=== PATIENT | female | born 1995 | race Caucasian/White ===

== ENCOUNTER 2017-09-13 18:14 | Emergency (ER) | payer OTHER ==
[2017-09-13] MEDS: METOCLOPRAMIDE INJ 10MG/2ML VIAL (J2765) IV (19:26)
[2017-09-13] MEDS: NS 500 ML IV (19:27)
[2017-09-13] MEDS: KETOROLAC 30 MG/ML VIAL (J1885) IV (19:27)
[2017-09-13 19:54] LABS: BASO % 0.3 % (0.0-1.0); HEMATOCRIT 36.6 % (36.0-47.0); HEMOGLOBIN 12.6 g/dl (12.0-15.5); IMMATURE GRANULOCYTE % 0.3 % (0-3.0); LYMPH % 14.5 % (24.0-44.0); MEAN CORPUSCULAR HEMOGLOBIN 29.4 pg (27.0-33.0); MEAN CORPUSCULAR HGB CONC 34.4 g/dl (32.0-36.5); MEAN CORPUSCULAR VOLUME 85.5 fl (80.0-96.0); MONO # 0.5 10^3/uL (0.0-0.8); NEUTROPHILS # 5.1 10^3/uL (1.8-7.7); NEUTROPHILS % 77.9 % (36.0-66.0); PLATELET COUNT, AUTOMATED 202 10^3/uL (150-450); RED BLOOD COUNT 4.28 10^6/uL (4.00-5.40); RED CELL DISTRIBUTION WIDTH 12.3 % (11.5-14.5); WHITE BLOOD COUNT 6.6 10^3/uL (4.0-10.0)
[2017-09-13 19:58] LABS: CONTROL LINE HCG INT CTR LINE PRESENT; HCG, SERUM QUALITATIVE NEGATIVE (NEGATIVE)
[2017-09-13 20:04] LABS: ANION GAP 11 MEQ/L (8-16); BLOOD UREA NITROGEN 7 MG/DL (7-18); CALCIUM LEVEL 8.5 MG/DL (8.5-10.1); CARBON DIOXIDE LEVEL 23 MEQ/L (21-32); CHLORIDE LEVEL 102 MEQ/L (98-107); CREATININE FOR GFR 0.64 MG/DL (0.55-1.30); GLOMERULAR FILTRATION RATE > 60.0 (>60); GLUCOSE, FASTING 79 MG/DL (70-100); POTASSIUM SERUM 3.3 MEQ/L (3.5-5.1); SODIUM LEVEL 136 MEQ/L (136-145)
[2017-09-13 20:08] LABS: LACTIC ACID SEPSIS PROTOCOL 1.2 MMOL/L (0.4-2.0)
[2017-09-13] MEDS: NS 1,000 ML IV (20:46)
[2017-09-13 21:17] LABS: KETONE, URINE AUTO RFX 2+ mg/dL (NEGATIVE); MUCUS, URINE RFX LARGE (NEGATIVE); RBC, URINE AUTO RFX 8 /HPF (0-3); SPECIFIC GRAVITY UR AUTO RFX 1.026 (1.002-1.035); SQUAM EPITHELIAL CELL UR AURFX 11 /HPF (0-6); WBC, URINE AUTO RFX 8 /HPF (0-3)
[2017-09-13 21:18] LABS: LEUKOCYTE ESTERASE UR AUTO RFX TRACE (NEGATIVE); NITRITE, URINE AUTO RFX POSITIVE (NEGATIVE)
[2017-09-13 22:24] LABS: CHLAMYDIA DNA AMPLIFICATION NEGATIVE (NEGATIVE); GC DNA AMPLIFICATION NEGATIVE (NEGATIVE)
[2017-09-13] MEDS: AMOXICILLIN 500 MG CAP PO (23:10)
== END 2017-09-13 23:12 | disposition home or self-care (01) ==
LOC: M ED 18:14
DX: J02.0 Streptococcal pharyngitis (principal); G43.909 Migraine, unspecified, not intractable, without status migrainosus; Z86.61 Personal history of infections of the central nervous system; Z87.891 Personal history of nicotine dependence; Z83.3 Family history of diabetes mellitus; Z86.39 Personal history of other endocrine, nutritional and metabolic disease
CPT/HCPCS: J1885

== ENCOUNTER → 2018-04-18 | Outpatient (CLI) | payer OTHER ==
[~2018-04-18] MED LIST: AMOX500T PO; IBUP-1114 PO; ONDA4TAB6 PO
[2018-04-18 18:07] LABS: BASO % 0.4 % (0.0-1.0); EOS # 0.1 10^3/uL (0.0-0.50); EOS % 0.7 % (0.0-3.0); HEMATOCRIT 39.8 % (36.0-47.0); HEMOGLOBIN 13.2 g/dl (12.0-15.5); MEAN CORPUSCULAR HEMOGLOBIN 30.1 pg (27.0-33.0); MEAN CORPUSCULAR HGB CONC 33.2 g/dl (32.0-36.5); MEAN CORPUSCULAR VOLUME 90.7 fl (80.0-96.0); MONO # 0.5 10^3/uL (0.0-0.8); MONO % 6.1 % (0.0-5.0); NEUTROPHILS # 5.9 10^3/uL (1.8-7.7); NEUTROPHILS % 69.4 % (36.0-66.0); PLATELET COUNT, AUTOMATED 267 10^3/uL (150-450); RED BLOOD COUNT 4.39 10^6/uL (4.00-5.40); WHITE BLOOD COUNT 8.5 10^3/uL (4.0-10.0)
[2018-04-18 20:54] LABS: CHLAMYDIA DNA AMPLIFICATION NEGATIVE (NEGATIVE); GC DNA AMPLIFICATION NEGATIVE (NEGATIVE)
[2018-04-19 11:18] LABS: HEPATITIS C VIRUS ABY INDEX 0.1 INDEX (<0.8); HIV 1&2 SCREEN CENTAUR NEGATIVE (NEGATIVE); RUBELLA IgG QUALITATIVE IMMUNE (IMMUNE)
== END ==
LOC: M SMT 14:14
PROVIDERS: ATTEND Advanced Practice Midwife
DX: Z36.89 Encounter for other specified antenatal screening (principal); Z3A.08 8 weeks gestation of pregnancy

== ENCOUNTER → 2018-05-16 | Outpatient (REF) | payer OTHER | LOC: M LAB REF 12:49 | PROVIDERS: ATTEND Advanced Practice Midwife | DX: Z34.81 Encounter for supervision of other normal pregnancy, first trimester (principal); Z3A.00 Weeks of gestation of pregnancy not specified ==

== ENCOUNTER → 2018-05-19 | Outpatient (CLI) | payer OTHER | LOC: M SMT 08:51 | PROVIDERS: ATTEND Advanced Practice Midwife | DX: Z34.81 Encounter for supervision of other normal pregnancy, first trimester (principal); Z36.89 Encounter for other specified antenatal screening ==

== ENCOUNTER → 2018-06-13 | Outpatient (REF) | payer OTHER | LOC: M LAB REF 13:11 | PROVIDERS: ATTEND Specialist | DX: Z34.82 Encounter for supervision of other normal pregnancy, second trimester (principal); Z3A.00 Weeks of gestation of pregnancy not specified ==

== ENCOUNTER → 2018-06-27 | Outpatient (CLI) | payer OTHER ==
--- NOTE | 2018-06-27 10:11 | REP ---
Obstetric sonography: History: Supervision of for anatomy. Findings: Scanning through the gravid uterus demonstrates a viable single intrauterine gestation in a cephalic lie. motion is observed and heart rate is recorded at 144 beats per minute. A posterior placenta is seen with a tear without evidence of previa or abruption. Amniotic fluid is subjectively normal. Closed cervical length is 3.1 cm measured transabdominally. No extrauterine abnormalities observed. No anomaly is seen. Cerebellum posterior fossa, left ventricular cardiac outflow tract, and spine views are less than optimally achieved due to position. The following additional anatomic structures are identified and felt to be sonographically unremarkable: cranium, choroid plexus, cavum, face and profile, lungs, four-chamber heart with right ventricular outflow tract view, diaphragm, left-sided stomach, abdominal wall cord insertion, three-vessel umbilical cord, kidneys and bladder, upper and lower extremities. Biometry chart: BPD 4.1 cm 18 weeks 2 days Head circumference 14.8 cm 17 weeks 6 days Abdominal circumference 12.4 cm 18 weeks 0 days Femur length 2.8 cm 18 weeks 4 days Humeral length 2.5 cm 18 weeks 0 days HC/AC ratio normal 1.19, cephalic index normal 0.77 estimated weight 231 grams, 0 pounds 8 ounces, 45th percentile for 18 weeks 2 days. Impression: Viable single intrauterine gestation of 18 weeks 1 day by today's composite sonographic criteria. OLMAN by today's sonography November 27, 2018. Less than optimal visualization of cerebellum posterior fossa, left ventricular outflow tract, and spine. Electronically Signed by Meng Mccain MD 06/27/2018 11:32 A
== END ==
LOC: M RAD 08:19
PROVIDERS: ATTEND Specialist
DX: Z34.82 Encounter for supervision of other normal pregnancy, second trimester (principal); Z36.89 Encounter for other specified antenatal screening; Z3A.18 18 weeks gestation of pregnancy

== ENCOUNTER → 2018-07-11 | Outpatient (REF) | payer OTHER | LOC: M LAB REF 13:27 | PROVIDERS: ATTEND Obstetrics & Gynecology | DX: Z34.82 Encounter for supervision of other normal pregnancy, second trimester (principal); Z3A.00 Weeks of gestation of pregnancy not specified ==

== ENCOUNTER → 2018-07-18 | Outpatient (CLI) | payer OTHER ==
--- NOTE | 2018-07-18 11:11 | REP ---
Obstetric ultrasound for anatomy follow-up: On the prior study of 06/27/2018 the intracranial posterior fossa, cardiac left ventricular outflow tract and spine were not optimally demonstrated because of position. The study today is performed for follow-up of these anatomic structures. On the study today the spine is adequately demonstrated and unremarkable. The intracranial posterior fossa and cardiac left ventricular outflow tract are again suboptimally demonstrated because of position. An additional followup study dedicated to these structures might be considered. The remainder of the anatomy is unremarkable. There is again a single intrauterine gestation in a vertex presentation. heart rate is 144 beats per minute. There is motion. The placenta is posterior. There is no placenta previa or abruptio. The placenta is grade zero. The amniotic fluid volume subjectively is normal. The cervix measures 3.1 cm length. By today's ultrasound the gestational age is 18 weeks 1 day/OLMAN 11/27/2089. By LMP the gestational age is 18 weeks 2 days/OLMAN 11/26/2018. weight is 231 grams/0 pounds, 8 ounces. This is the 45th percentile for 18 weeks 2 days. Electronically Signed by Ashok Mo MD 07/18/2018 11:02 A
== END ==
LOC: M RAD 08:31
PROVIDERS: ATTEND Obstetrics & Gynecology
DX: Z34.82 Encounter for supervision of other normal pregnancy, second trimester (principal); Z3A.18 18 weeks gestation of pregnancy

== ENCOUNTER → 2018-08-07 | Outpatient (REF) | payer OTHER | LOC: M LAB REF 17:12 | PROVIDERS: ATTEND Advanced Practice Midwife | DX: Z34.82 Encounter for supervision of other normal pregnancy, second trimester (principal) ==

== ENCOUNTER → 2018-08-22 | Outpatient (CLI) | payer OTHER ==
[2018-08-22 13:43] LABS: HEMATOCRIT 33.9 % (36.0-47.0); HEMOGLOBIN 11.1 g/dl (12.0-15.5); MEAN CORPUSCULAR HEMOGLOBIN 31.4 pg (27.0-33.0); MEAN CORPUSCULAR HGB CONC 32.7 g/dl (32.0-36.5); MEAN CORPUSCULAR VOLUME 95.8 fl (80.0-96.0); PLATELET COUNT, AUTOMATED 222 10^3/uL (150-450); RED BLOOD COUNT 3.54 10^6/uL (4.00-5.40); WHITE BLOOD COUNT 8.7 10^3/uL (4.0-10.0)
== END ==
LOC: M SMT 09:26
PROVIDERS: ATTEND Advanced Practice Midwife
DX: Z34.82 Encounter for supervision of other normal pregnancy, second trimester (principal); Z3A.00 Weeks of gestation of pregnancy not specified

== ENCOUNTER → 2018-08-31 | Outpatient (CLI) | payer OTHER | LOC: M LAB 08:23 | PROVIDERS: ATTEND Advanced Practice Midwife | DX: R73.02 Impaired glucose tolerance (oral) (principal) ==

== ENCOUNTER → 2018-09-04 | Outpatient (REF) | payer OTHER | LOC: M LAB REF 12:58 | PROVIDERS: ATTEND Advanced Practice Midwife | DX: Z34.82 Encounter for supervision of other normal pregnancy, second trimester (principal); Z36.89 Encounter for other specified antenatal screening ==

== ENCOUNTER → 2018-09-18 | Outpatient (CLI) | payer OTHER ==
--- NOTE | 2018-09-18 18:42 | REP ---
Follow-up obstetric ultrasound a patient with gestational diabetes for growth: There is a single intrauterine gestation in a vertex presentation. There is movement and cardiac activity. The heart rate is 141 beats per minute. The placenta is posterior without evidence of previa or abruptio and demonstrating grade one maturity. The amniotic fluid volume subjectively is normal. The amniotic fluid index is 11.2/9.0 - 23.4. Gestational age by today's ultrasound is 29 weeks 1 day/OLMAN 12/03/2018. Gestational age by the first ultrasound is 30 weeks 0 days/OLMAN 11/27/2018. Gestational age by LMP is 30 weeks 1 day/OLMAN 11/26/2018. weight of 1399 grams/3 pounds, 1 ounce. This is the 29th percentile for 30 weeks 1 day. Umbilical cord Doppler assessment: S/D ratio 3.8 (2.30-3.30) Resistive Index 0.74. The the prior with stated that the Noemi (0.59-0.75 Diastolic Velocity 7.6 (>10 cm/sec) Electronically Signed by Ashok Mo MD 09/18/2018 06:32 P
== END ==
LOC: M RAD 16:42
PROVIDERS: ATTEND Advanced Practice Midwife
DX: O24.419 Gestational diabetes mellitus in pregnancy, unspecified control (principal); Z3A.29 29 weeks gestation of pregnancy

== ENCOUNTER 2018-10-30 03:13 | Inpatient (IN) | payer OTHER ==
[~2018-10-30] VITALS: Ht 147.3 cm; Wt 58.6 kg
[2018-10-30] VITALS (43 sets, daily range): BP systolic 106–157; BP diastolic 53–105
[2018-10-30] MEDS ORDERED: PENICILLIN G POTASSIUM IV 5 MU in D5W MINI-BAG PLUS 100 ML IV STA (04:53)
[2018-10-30] MEDS: LR 1,000 ML IV SCH ×2 (04:53→12:51)
[2018-10-30] MEDS ORDERED: LACTATED RINGER'S 1000 ML IV STA (04:53)
--- NOTE | 2018-10-30 05:11 | NUR ---
L&D H&P HPI: 23 year old at 36+1 weeks estimated gestation. Expected date of confinement: 11/26/18. dated by LMP c/w first TM US. Presents today with complaint of large loss of fluid at 0200 followed by continuous leakage of clear fluid. Also complains of painful frequent uterine contractions. Denies vaginal bleeding, loss of fluid, or uterine contractions. Reports regular movement. course c/b GDMA1. labs: Blood type A+,antibody screen negative, rubella immune, VDRL nonreactive , hepatitis B surface antigen negative, HIV negative, hepatitis C antibody negative, GC/CT negative, aneuploidy/maternal serum screening: low risk XX, 1 hour glucose challenge test: 165, 3 hour glucose tolerance test: 76,190,178, 175 GBS unknown Vaccinations: Tdap 09/19/18 Radiology/OB US: no anomalies or placental abnormalities detected. History Past medical history: none Surgical history: dental Medications: PNV Allergies: NKDA [employer] history: +CT/treate (negative screen this ) OB history: EAB x 1 Social history: no t/e/d. quit smoking during Family history: DM, CA, Thyroid, Seizure disorder Objective Vitals: Normotensive, normal heart rate, afebrile Heart: Regular rate and rhythm. No murmurs, rubs or gallops. Lungs: Clear to auscultation bilaterally. No wheezes, crackles, rales or rhonchi. Abdomen: Uterine fundal height consistent with dates. No guarding or rebound tenderness. Extremities: No clubbing, cyanosis or edema. Normal deep tendon reflexes. Sterile vaginal exam: 4 cm, 90 %effacement, -2 station, cephalic, intact External monitoring: heart rate category 1 Tocodynamometer: contractions occurring every 2-3 min Assessment/Plan 23 year old at 36+1 weeks gestation. Diagnosis: labor w/ PPROM. Reassuring and maternal status. -Admit to labor and delivery with routine labs and orders -External monitoring and tocodynamometer -Pediatrics and anesthesia consultations as needed. -GBS prophylaxis with IV penicillin -Augment labor with Pitocin as needed Dr. Pablo Botello, DO, FACOG
[2018-10-30 05:39] LABS: HEMATOCRIT 33.2 % (36.0-47.0); HEMOGLOBIN 10.2 g/dl (12.0-15.5); MEAN CORPUSCULAR HEMOGLOBIN 26.2 pg (27.0-33.0); MEAN CORPUSCULAR HGB CONC 30.7 g/dl (32.0-36.5); MEAN CORPUSCULAR VOLUME 85.3 fl (80.0-96.0); PLATELET COUNT, AUTOMATED 207 10^3/uL (150-450); RED BLOOD COUNT 3.89 10^6/uL (4.00-5.40); WHITE BLOOD COUNT 9.4 10^3/uL (4.0-10.0)
[2018-10-30 05:45] LABS: AMPHETAMINES URINE REFLEX NEGATIVE (NEGATIVE); BARBITURATES URINE REFLEX NEGATIVE (NEGATIVE); BENZODIAZEPINES URINE REFLEX NEGATIVE (NEGATIVE); CANNABINOIDS URINE REFLEX NEGATIVE (NEGATIVE); COCAINE METABOLITE URINE REFLE NEGATIVE (NEGATIVE); METHADONE URINE REFLEX NEGATIVE (NEGATIVE); OPIATES URINE REFLEX NEGATIVE (NEGATIVE); PHENCYCLIDINE URINE REFLEX NEGATIVE (NEGATIVE)
[2018-10-30] MEDS ORDERED: FENTANYL 2MCG/ML ROPIVACAINE 0.2% IN 0.9% NACL 100ML IVBAG As Ordered ONE (06:00)
[2018-10-30] MEDS ORDERED: diphenhydrAMINE INJ 50MG/ML VIAL (J1200) IV PRN (07:45)
[2018-10-30] MEDS ORDERED: FENTANYL/ROPIVACAINE/NACL BAG 100 ML EPIDURAL SCH (07:45)
[2018-10-30] MEDS ORDERED: NALOXONE INJ 0.4 MG/1 ML VIAL (J2310) IV PRN (07:45)
[2018-10-30] MEDS ORDERED: EPIDURAL/PCA KEYS XX PRN (07:45)
[2018-10-30] MEDS ORDERED: ONDANSETRON 4MG/2ML VIAL (J2405) IV PRN (07:45)
[2018-10-30] MEDS ORDERED: LACTATED RINGER'S 1000 ML IV PRN (07:45)
[2018-10-30] MEDS ORDERED: REFRIGERATOR IV KEYS XX PRN (07:45)
[2018-10-30] MEDS ORDERED: EPIDURAL COMMENT XX SCH (07:45)
[2018-10-30] MEDS ORDERED: OXYTOCIN 30 UNITS IN 0.9% NaCl 500ML IV BAG (J2590) As Ordered ONE (08:57)
[2018-10-30] MEDS ORDERED: BETAMETHASONE SOLUSPAN 6MG/ML INJ 5ML (J0702) As Ordered ONE (08:59)
[2018-10-30] MEDS ORDERED: OXYTOCIN DRIP 30 UNITS in APPROPRIATE DILUENT 1 EA IV SCH ×2 (09:15→15:02)
[2018-10-30] MEDS ORDERED: BETAMETHASONE SOLUSPAN 6MG/ML INJ 5ML (J0702) IM ONE (09:15)
[2018-10-30] MEDS: ePHEDrine SULFATE 25 MG/5 ML(5MG/ML) SYRINGE IV PRN ×2 (09:32→10:18)
--- NOTE | 2018-10-30 09:50 | IPNPDOC ---
Obstetrical Progress Note Date of Service Oct 30, 2018 Subjective Patient reports she is comfortable with epidural. Objective Vital Signs Date Time Temp Pulse Resp B/P (MAP) Pulse Ox O2 Delivery O2 Flow Rate FiO2 10/30/18 07:15 97.8 103 18 110/60 (77) Assessment Heart Rate (FHR): 145 Variability: Moderate Accelerations: Positive Decelerations: Variable Heart Rate Tracing: Category II Tocometer Contractions: Yes Frequency: regular Sterile Vaginal Examination Dilation: 6 cm Effacement (%): 90% Station: 0 Cervical Consistency: Soft Postion/Presentation: Cephalic presentation Assessment and Plan Livin.1 Status: Reassuring Group B Streptococcus: Unknown Anticipate: Vaginal Delivery Additional Comments IV Pitocin was started at 2 mu/min prior to variables starting. Patient reported feeling some lightheadedness and had a pressure drop. Ephedrine was given by nurse to help increase BP. continue to monitor. CINDY KAM CNM Oct 30, 2018 09:50
[2018-10-30] MEDS: PENICILLIN G POTASSIUM IV 2.5 MU in APPROPRIATE DILUENT 1 EA IV SCH ×2 (09:53→13:29)
[2018-10-30] MEDS ORDERED: DIBUCAINE 1% OINTMENT 30GM TOP PRN (15:15)
[2018-10-30] MEDS ORDERED: MEASLES,MUMPS,RUBELLA VACCINE INJ (MMR-II) (90707) SC SCH (15:15)
[2018-10-30] MEDS ORDERED: DOCUSATE SODIUM 100 MG CAP PO PRN (15:15)
[2018-10-30] MEDS ORDERED: RHOGAM 300 MCG (1500 IU) INJ (J2790) IM SCH (15:15)
[2018-10-30] MEDS ORDERED: METHYLERGONOVINE MALEATE 0.2 MG TAB PO PRN (15:15)
[2018-10-30] MEDS ORDERED: ACETAMINOPHEN 500 MG TAB PO PRN (15:15)
[2018-10-30] MEDS ORDERED: IBUPROFEN 600 MG TAB PO PRN (15:15)
[2018-10-30] MEDS ORDERED: ACETAMINOPHEN TAB 650MG DOSE (2X325MG) PO PRN (15:15)
[2018-10-30] MEDS ORDERED: SLF 3 ML SYR IV PRN (16:15)
[2018-10-30] MEDS: IBUPROFEN 800 MG TAB PO PRN (17:59)
[2018-10-30] MEDS: SLF 3 ML SYR IV SCH (22:00)
[2018-10-31] MEDS: SLF 3 ML SYR IV SCH ×2 (06:00→13:03)
[2018-10-31 06:46] VITALS: BP 116/64
--- NOTE | 2018-10-31 08:07 | DN ---
DATE: 10/30/2018 TIME: 1429 hours STATUS: Delivered. Spontaneous vaginal delivery. PROVIDER: Ching Sharif CNM, [facility] ANESTHESIA: Epidural. ESTIMATED BLOOD LOSS: 350 FINDINGS: Female, 4 pounds 14 ounces, 2220 grams, scores 8/9, PROM. The patient is a 23-year-old female who is now a G2, P1-0-1-1 at 36 weeks 1 day gestation who presented to labor and delivery last night with complaints of spontaneous rupture of membranes occurring around 2:00 a.m. The patient progressed to fully dilated at 1404 hours with use of a small amount of IV Pitocin and pushed to a living female in the DAPHNE position with restitution to ROT at 1429. The anterior shoulder delivered with ease and the corpus immediately followed. The baby was placed on the maternal abdomen, active and crying. The cord was clamped times two after pulsations ceased and cut by the father of the baby. A three vessel cord was noted. The placenta delivered spontaneously and intact at 1433 hours. Uterine hemostasis was achieved via rapid infusion of IV Pitocin and fundal massage. The cervix, peroneum and vagina was inspected and found to be intact. The mother plans to breast feed and formula feed her . They plan on naming her Paislie. Both mother and baby are in stable condition. All sponges and instrument count were correct.
[2018-10-31] MEDS: PRENATAL VITAMINS CHEWABLE TABLET PO SCH (09:32)
[2018-10-31] MEDS: IBUPROFEN 800 MG TAB PO PRN ×2 (09:46→18:02)
[2018-10-31 18:10] VITALS: BP 129/59
[2018-11-01 06:00] VITALS: BP 123/65
[2018-11-01] MEDS: PRENATAL VITAMINS CHEWABLE TABLET PO SCH (08:00)
== END 2018-11-01 11:05 | disposition home or self-care (01) | DRG 807 ==
LOC: M LDO 03:13 → M LDI 04:34 → M OBS 17:16
PROVIDERS: ADMIT Obstetrics & Gynecology; ATTEND Advanced Practice Midwife
PROC: 10E0XZZ Delivery of Products of Conception, External Approach (ICD-10-PCS; principal; 2018-10-30)
DX: O42.013 Preterm premature rupture of membranes, onset of labor within 24 hours of rupture, third trimester (principal); Z37.0 Single live birth; Z3A.36 36 weeks gestation of pregnancy; O24.420 Gestational diabetes mellitus in childbirth, diet controlled

== ENCOUNTER → 2018-12-14 | Outpatient (CLI) | payer OTHER | LOC: M LAB 07:50 | PROVIDERS: ATTEND Advanced Practice Midwife | DX: Z86.32 Personal history of gestational diabetes (principal) ==

== ENCOUNTER → 2018-12-20 | Outpatient (REF) | payer OTHER | LOC: M LAB REF 17:06 | PROVIDERS: ATTEND Advanced Practice Midwife | DX: R30.0 Dysuria (principal) ==

== ENCOUNTER → 2020-05-21 | Outpatient (CLI) | payer SELFPAY | LOC: M LABSMTC 10:29 | PROVIDERS: ATTEND Pediatrics | DX: Z20.822 Contact with and (suspected) exposure to COVID-19 (principal) ==

== ENCOUNTER → 2023-04-27 | Outpatient (REF) | payer OTHER | LOC: M SFHCWAGY 18:11 | PROVIDERS: ATTEND Nurse Practitioner Family | DX: Z12.4 Encounter for screening for malignant neoplasm of cervix (principal); Z11.51 Encounter for screening for human papillomavirus (HPV) ==

== ENCOUNTER → 2024-07-20 | Outpatient (REF) | payer OTHER ==
[~2024-07-20] MED LIST changes: +ONDA-282 PO; -ONDA4TAB6 PO
== END ==
LOC: M LAB REF 12:56
PROVIDERS: ATTEND Physician Assistant
DX: N39.0 Urinary tract infection, site not specified (principal)